=== PATIENT | female | born 1950 | race Caucasian/White ===

== ENCOUNTER 2024-05-27 21:30 | Inpatient (IN) | payer MEDICARE, OTHER ==
[~2024-05-27] VITALS: Ht 157.5 cm; Wt 72.5 kg
[2024-05-27] MEDS ORDERED: heparin 25,000 UNIT/250ml bag 250 ML IV PRN (21:50)
[2024-05-27 22:04] LABS: BASOPHILS # (AUTO) 0.1 X10'3 (0-0.2); BASOPHILS % (AUTO) 0.5 % (0-1); EOSINOPHILS # (AUTO) 0.1 X10'3 (0-0.9); EOSINOPHILS % (AUTO) 0.7 % (0-6); HEMATOCRIT 45.2 % (35.0-45.0); HEMOGLOBIN 15.4 g/dl (12.0-16.0); LYMPHOCYTES # (AUTO) 4.2 X10'3 (1.1-4.8); LYMPHOCYTES % (AUTO) 43.8 % (21-51); MEAN CORPUSCULAR HEMOGLOBIN 31.3 PG (27.0-31.0); MEAN PLATELET VOLUME 7.8 FL (7.4-10.4); MONOCYTES # (AUTO) 0.7 X10'3 (0-0.9); MONOCYTES % (AUTO) 7.6 % (2-12); NEUTROPHILS # (AUTO) 4.6 X10'3 (1.8-7.7); NEUTROPHILS % (AUTO) 47.4 % (42-75); PLATELET COUNT 314 X10'3 (140-440); RED BLOOD COUNT 4.91 X10'6 (4.20-5.60); RED CELL DISTRIBUTION WIDTH 13.4 % (11.5-14.5); WHITE BLOOD COUNT 9.6 X10'3 (4.5-11.0)
[2024-05-27] MEDS ORDERED: HYDR12.55 PO (22:39)
[2024-05-27] MEDS ORDERED: NITR0.4T51 SL (22:39)
[2024-05-27] MEDS ORDERED: METF-436 PO (22:39)
[2024-05-27] MEDS ORDERED: ALBU8HFA INH (22:39)
[2024-05-27] MEDS ORDERED: LORA-268 PO (22:39)
[2024-05-27] MEDS ORDERED: ATOR20TA66 PO (22:39)
[2024-05-27] MEDS ORDERED: [UNRECOGNIZED DRUG - CODE] PO (22:39)
[2024-05-27] MEDS ORDERED: IBUP-2697 PO (22:39)
[2024-05-27] MEDS: heparin 25,000 UNIT/250ml bag 250 ML IV ONE (22:40)
[2024-05-27] MEDS: MESSAGE TO NURSING IV ONE (22:43)
[2024-05-27 22:49] LABS: APTT 35 SECONDS (22-32); INR 1.1 INR; PROTHROMBIN TIME 11.1 SECONDS (9.0-12.0)
[2024-05-27 22:57] LABS: ALANINE AMINOTRANSFERASE 50 U/L (12-78); ALBUMIN 3.5 G/DL (3.4-5.0); ALBUMIN/GLOBULIN RATIO 0.9 (1.1-1.5); ALKALINE PHOSPHATASE 117 IU/L (46-116); ANION GAP 10 (8-16); ASPARTATE AMINO TRANSFERASE 28 U/L (10-37); BILIRUBIN,TOTAL 0.6 MG/DL (0.1-1.0); BLOOD UREA NITROGEN 10 MG/DL (7-18); BUN/CREATININE RATIO 11.4 (10.0-20.0); CALCIUM 9.6 MG/DL (8.5-10.1); CHLORIDE 102 MMOL/L (99-107); CREATININE 0.88 MG/DL (0.40-0.90); GLUCOSE 94 MG/DL (70-104); SODIUM 140 MMOL/L (135-145); TOTAL CARBON DIOXIDE 28.2 MMOL/L (24-32); TOTAL PROTEIN 7.2 G/DL (6.4-8.2); eCRCL 45 ML/MIN; eGFR 63 ML/MIN
[2024-05-27] MEDS ORDERED: magnesium sulf-water 2g/50mL 50 ML IV PRN (23:55)
[2024-05-27] MEDS ORDERED: acetaminophen 325mg tablet PO PRN (23:55)
[2024-05-27] MEDS ORDERED: potassium Cl 20 mEq SR tablet PO PRN (23:55)
[2024-05-27] MEDS ORDERED: mag hydrox/Alum hydrox/simeth 30ml oral suspension PO PRN (23:55)
[2024-05-27] MEDS ORDERED: magnesium sulf-water 4G/100mL 100 ML IV PRN (23:55)
[2024-05-27] MEDS ORDERED: potassium Cl 40MEQ/1/2NS 520ml 520 ML IV PRN (23:55)
[2024-05-27] MEDS ORDERED: magnesium Cl slow-release 64mg tablet PO PRN (23:55)
[2024-05-28] VITALS (11 sets, daily range): BP systolic 110–129; BP diastolic 55–73; PULSE 82–105; RESP 13–17; TEMP 97.3–98; O2SAT 95–98
[2024-05-28] MEDS ORDERED: PERFLUTREN PROTEIN-A MICROSPHR (Optison) 0.22 MG/ML 3ML VIAL IV PRN
[2024-05-28] MEDS ORDERED: glucagon, human recombinant 1mg kit SUBCUT PRN (00:10)
[2024-05-28] MEDS ORDERED: DEXTROSE 15 GM of carb/4 tabs (each vial/BOTTLE has 4 tablets) PO PRN ×2 (00:10)
[2024-05-28] MEDS ORDERED: dextrose 50%-water 50ml dispensing syringe IV PRN ×2 (00:10)
[2024-05-28 00:11] LABS: LIPASE 32 U/L (16-77)
[2024-05-28] MEDS ORDERED: LORazepam 0.5 MG tablet PO PRN (00:15)
[2024-05-28] MEDS ORDERED: nitroGLYCERIN 0.4mg SUBLingual tab SL PRN (00:20)
[2024-05-28] MEDS ORDERED: aminophylline 250mg/10ml inj. IV PRN (00:20)
[2024-05-28] MEDS ORDERED: metoprolol tartrate 1mg/ml inj IV PRN (00:20)
[2024-05-28] MEDS: potassium Cl 20 mEq SR tablet PO STA (00:27)
[2024-05-28 01:54] LABS: HEMOGLOBIN A1C 5.7 % (4.5-6.2)
[2024-05-28 02:08] LABS: THYROID STIMULATING HORMONE 0.46 ulU/ml (0.34-4.50)
[2024-05-28] MEDS: potassium Cl 20 mEq SR tablet PO PRN (04:34)
[2024-05-28 04:55] LABS: BASOPHILS % (AUTO) 0.4 % (0-1); EOSINOPHILS # (AUTO) 0.1 X10'3 (0-0.9); EOSINOPHILS % (AUTO) 0.8 % (0-6); HEMATOCRIT 45.4 % (35.0-45.0); HEMOGLOBIN 15.3 g/dl (12.0-16.0); LYMPHOCYTES # (AUTO) 3.9 X10'3 (1.1-4.8); LYMPHOCYTES % (AUTO) 38.5 % (21-51); MEAN CORPUSCULAR HEMOGLOBIN 31.1 PG (27.0-31.0); MEAN CORPUSCULAR HGB CONC 33.8 g/dL (33.0-36.5); MEAN CORPUSCULAR VOLUME 92.1 FL (78-98); MEAN PLATELET VOLUME 7.8 FL (7.4-10.4); MONOCYTES # (AUTO) 0.7 X10'3 (0-0.9); MONOCYTES % (AUTO) 6.9 % (2-12); NEUTROPHILS # (AUTO) 5.4 X10'3 (1.8-7.7); NEUTROPHILS % (AUTO) 53.4 % (42-75); PLATELET COUNT 288 X10'3 (140-440); RED BLOOD COUNT 4.92 X10'6 (4.20-5.60); RED CELL DISTRIBUTION WIDTH 13.4 % (11.5-14.5)
[2024-05-28 05:08] LABS: ALBUMIN 3.3 G/DL (3.4-5.0); ANION GAP 10 (8-16); BLOOD UREA NITROGEN 11 MG/DL (7-18); BUN/CREATININE RATIO 12.8 (10.0-20.0); CALCIUM 9.5 MG/DL (8.5-10.1); CHLORIDE 103 MMOL/L (99-107); CREATININE 0.86 MG/DL (0.40-0.90); GLUCOSE 99 MG/DL (70-104); POTASSIUM 3.5 MMOL/L (3.5-5.1); SODIUM 140 MMOL/L (135-145); eCRCL 46 ML/MIN; eGFR 65 ML/MIN
[2024-05-28] MEDS: MESSAGE TO NURSING IV ONE (05:20)
[2024-05-28] MEDS: heparin 10,000 units/1 ML INJ IV PRN (06:38)
[2024-05-28] MEDS: INSULIN LISPRO 100 UNIT/ML INSULN.PEN MULTI-DOSE SQ SCH ×2 (06:52→09:00)
[2024-05-28] MEDS: K and/or MAG REPLACEMENT MC SCH (08:00)
[2024-05-28] MEDS: citalopram 20mg tablet PO SCH (08:00)
[2024-05-28] MEDS ORDERED: HYDROchlorothiazide 12.5mg capsule PO SCH (08:00)
[2024-05-28] MEDS: regadenoson 0.4mg/5ml syringe IV PRN (09:26)
[2024-05-28] MEDS: ondansetron/PF 4mg/2ml inj IV PRN (12:06)
[2024-05-28] MEDS: metoclopramide 10mg tablet PO ONE (14:43)
[2024-05-28] MEDS ORDERED: HYDR12.55 PO (18:08)
[2024-05-28] MEDS ORDERED: POTA-207 PO (18:08)
== END 2024-05-28 19:40 | disposition home or self-care (01) | DRG 282 ==
LOC: ER 21:32 → ED HOLD 23:57 → PCU 3S 05-28 02:33
PROVIDERS: ADMIT Internal Medicine Critical Care Medicine; ATTEND Internal Medicine
PROC: 4A02XM4 Measurement of Cardiac Total Activity, External Approach (ICD-10-PCS; principal; 2024-05-28)
PROC: 3E033HZ Introduction of Radioactive Substance into Peripheral Vein, Percutaneous Approach (ICD-10-PCS; 2024-05-28)
DX: I21.4 Non-ST elevation (NSTEMI) myocardial infarction (principal); I10 Essential (primary) hypertension; F41.9 Anxiety disorder, unspecified; E87.6 Hypokalemia; E11.9 Type 2 diabetes mellitus without complications; E78.5 Hyperlipidemia, unspecified; Z79.899 Other long term (current) drug therapy; Z88.5 Allergy status to narcotic agent; Z88.2 Allergy status to sulfonamides; Z88.6 Allergy status to analgesic agent; Z79.84 Long term (current) use of oral hypoglycemic drugs; Z90.710 Acquired absence of both cervix and uterus; Z90.49 Acquired absence of other specified parts of digestive tract
CPT/HCPCS: 36415; 78452; 80048; 80053; 82948; 83036; 83690; 83735; 84443; 84484; 85025; 85610; 85730; 87081; 93005; 93017; 93306; 96374; 97161; 97530; 99285; A9500; G0378; J1644; J1815; J2405; J2785